=== PATIENT | male | born 1985 | race Caucasian/White ===

== ENCOUNTER → 2017-10-08 | Emergency (ER) | payer OTHER ==
[~2017-10-08] VITALS: Ht 165.1 cm; Wt 65.3 kg
[~2017-10-08] MED LIST: OSEL75CA PO; TUSSI PRES-B L120 M1 PO
== END | disposition home or self-care (01) ==
LOC: ER 10:21
DX: B34.9 Viral infection, unspecified (principal)

== ENCOUNTER 2018-11-06 13:24 | Emergency (ER) | payer OTHER ==
[~2018-11-06] VITALS: Ht 157.5 cm; Wt 65.3 kg
== END 2018-11-06 19:48 | disposition home or self-care (01) ==
LOC: ER 13:24
DX: J11.1 Influenza due to unidentified influenza virus with other respiratory manifestations (principal)

== ENCOUNTER 2019-07-16 16:46 | Outpatient (CLI) | payer OTHER | END 2019-07-16 17:54 | disposition home or self-care (01) | LOC: LAB 16:46 | DX: J11.1 Influenza due to unidentified influenza virus with other respiratory manifestations (principal) ==

== ENCOUNTER 2019-10-13 12:12 | Emergency (ER) | payer OTHER ==
[~2019-10-13] VITALS: Ht 157.5 cm; Wt 68.0 kg
== END 2019-10-13 15:18 | disposition home or self-care (01) ==
LOC: ER 12:12
DX: M54.5 Low back pain (principal); R30.0 Dysuria